=== PATIENT | female | born 1950 | race African-American/Black ===

== ENCOUNTER 2020-09-16 13:45 | Inpatient (IN) | payer MEDICARE ==
[~2020-09-16] VITALS: Ht 172.7 cm; Wt 49.9 kg
[2020-09-16] MEDS ORDERED: MORPHINE SULFATE 4 MG/ML CPJ (NOT FOR IM USE) IV STA (15:19)
[2020-09-16] MEDS ORDERED: ONDANSETRON HCL 4MG/2ML INJ IV STA (15:19)
[2020-09-16] MEDS ORDERED: SODIUM CHLORIDE 0.9% 1,000 ML IV ONE (15:30)
[2020-09-16 16:15] LABS: BASOPHILS % 0.2 % (0.0-2.0); EOSINOPHILS % 0.1 % (0.0-5.0); HEMATOCRIT. 31.8 % (36.0-48.0); HEMOGLOBIN. 10.6 g/dL (12.0-16.0); LYMPHOCYTES % 17.2 % (20.0-50.0); MEAN CORPUSCULAR HEMOGLOBIN 32.9 pg (28.0-32.0); MEAN CORPUSCULAR VOLUME 98.9 fL (81.0-99.0); MEAN PLATELET VOLUME 7.1 fl (7.4-10.4); MONOCYTES % 7.1 % (2.0-8.0); NEUTROPHILS % 75.4 % (40.0-76.0); PLATELET 651 x1000/uL (130-400); RED BLOOD CELL COUNT 3.22 mill/uL (4.2-5.4)
[2020-09-16 16:21] LABS: CHLORIDE 100 mEq/L (98-107)
[2020-09-16 16:23] LABS: INR 1.1; PROTHROMBIN TIME 11.5 sec (9.6-11.0)
[2020-09-16 16:26] LABS: ETHANOL BLOOD < 10 mg/dL
[2020-09-16] MEDS ORDERED: PIPERACILLIN/TAZ 3.375G PREMIX 50 ML IV ONE (16:45)
[2020-09-16 17:14] LABS: CLARITY URINE TURBID (CLEAR); COLOR URINE YELLOW (YELLOW); KETONES URINE NEGATIVE (NEGATIVE); LEUKOCYTE ESTERASE URINE 2+ (NEGATIVE); NITRITE URINE NEGATIVE (NEGATIVE); OCCULT BLOOD URINE NEGATIVE (NEGATIVE); PH URINE 7.5 (4.5-8.0); PROTEIN URINE 1+ (NEGATIVE)
[2020-09-16 17:31] LABS: *AMPHETAMINES SCREEN URINE NEGATIVE (NEGATIVE); *BARBITURATES SCREEN URINE NEGATIVE (NEGATIVE); *BENZODIAZEPINES SCREEN URINE NEGATIVE (NEGATIVE); *COCAINE SCREEN URINE NEGATIVE (NEGATIVE); METHADONE URINE SCREEN NEGATIVE (NEGATIVE); OPIATES URINE SCREEN PRESUMTIVE POSITIVE (NEGATIVE)
[2020-09-16 17:32] LABS: CANNABINOID URINE SCREEN PRESUMTIVE POSITIVE (NEGATIVE); PHENCYCLIDINE URINE SCREEN NEGATIVE (NEGATIVE)
[2020-09-16] MEDS ORDERED: MORPHINE SULFATE 10 MG/ML CPJ IV ONE (18:30)
[2020-09-16 22:45] VITALS: BP 129/69
[2020-09-16] MEDS ORDERED: TRAZODONE HCL 50MG TABLET PO PRN (23:00)
[2020-09-16] MEDS ORDERED: ONDANSETRON HCL 4MG/2ML INJ IV PRN (23:00)
[2020-09-16] MEDS ORDERED: HYDROCODONE/ACETAMINOPHEN 5/325MG TABLET PO PRN ×2 (23:00)
[2020-09-16] MEDS ORDERED: MORPHINE SULFATE 2 MG/ML CPJ (NOT FOR IM USE) IV PRN (23:00)
[2020-09-16] MEDS ORDERED: IOHEXOL-300 100 ML BOTTLE ONE (23:14)
[2020-09-17] MEDS: MORPHINE SULFATE 4 MG/ML CPJ (NOT FOR IM USE) IV PRN ×5 (00:29→23:43)
[2020-09-17] MEDS ORDERED: LISI40TA4 PO (03:28)
[2020-09-17] MEDS ORDERED: HYDR-3280 PO (03:39)
[2020-09-17] MEDS ORDERED: GABA300C PO (03:39)
[2020-09-17] MEDS ORDERED: METH-612 GT (03:41)
[2020-09-17 03:54] VITALS: BP 129/69
[2020-09-17 04:00] VITALS: BP 129/69
[2020-09-17] MEDS: ACETAMINOPHEN 325MG TABLET PO PRN ×2 (05:49→19:05)
[2020-09-17 08:00] VITALS: BP 148/65
[2020-09-17] MEDS: HEPARIN 5000 UNITS/ML VIAL SUBCUT SCH ×2 (09:00→21:00)
[2020-09-17 09:20] LABS: BASOPHILS % 0.4 % (0.0-2.0); HEMOGLOBIN. 9.9 g/dL (12.0-16.0); MEAN CORPUSCULAR HEMOGLOBIN 32.6 pg (28.0-32.0); MEAN CORPUSCULAR VOLUME 98.7 fL (81.0-99.0); MEAN PLATELET VOLUME 6.9 fl (7.4-10.4); MONOCYTES % 6.5 % (2.0-8.0); NEUTROPHILS % 75.1 % (40.0-76.0); PLATELET 618 x1000/uL (130-400); RED BLOOD CELL COUNT 3.04 mill/uL (4.2-5.4)
[2020-09-17 09:47] LABS: CHLORIDE 99 mEq/L (98-107)
[2020-09-17 12:00] VITALS: BP 129/64
[2020-09-17] MEDS: CEFTRIAXONE 1,000 MG in DEXTROSE 5% WATER 50 ML IV SCH (14:40)
[2020-09-17] MEDS: SODIUM CHLORIDE 0.9% 1,000 ML IV SCH (14:40)
[2020-09-17] MEDS: MORPHINE SULFATE 15MG TABLET SR PO SCH ×2 (15:30→21:11)
[2020-09-17] MEDS ORDERED: NALOXONE HCL 0.4 MG/ML 1ML VIAL IV PRN (15:30)
[2020-09-17 16:00] VITALS: BP 143/64
[2020-09-17 20:00] VITALS: BP 150/57
[2020-09-17] MEDS: GABAPENTIN 300MG CAPSULE PO SCH (21:10)
[2020-09-18] VITALS (7 sets, daily range): BP systolic 115–186; BP diastolic 64–93
[2020-09-18] MEDS: SODIUM CHLORIDE 0.9% 1,000 ML IV SCH ×2 (02:20→15:40)
[2020-09-18] MEDS: GABAPENTIN 300MG CAPSULE PO SCH ×3 (05:29→22:32)
[2020-09-18] MEDS: MORPHINE SULFATE 15MG TABLET SR PO SCH ×2 (05:32→12:42)
[2020-09-18 06:32] LABS: BASOPHILS % 0.3 % (0.0-2.0); EOSINOPHILS % 0.2 % (0.0-5.0); HEMATOCRIT. 31.8 % (36.0-48.0); HEMOGLOBIN. 10.7 g/dL (12.0-16.0); MEAN CORPUSCULAR HEMOGLOBIN 33.4 pg (28.0-32.0); MEAN CORPUSCULAR VOLUME 99.1 fL (81.0-99.0); MEAN PLATELET VOLUME 6.8 fl (7.4-10.4); MONOCYTES % 7.2 % (2.0-8.0); NEUTROPHILS % 72.3 % (40.0-76.0); PLATELET 616 x1000/uL (130-400); RED BLOOD CELL COUNT 3.22 mill/uL (4.2-5.4)
[2020-09-18] MEDS: MORPHINE SULFATE 4 MG/ML CPJ (NOT FOR IM USE) IV PRN ×4 (06:39→22:38)
[2020-09-18 06:44] LABS: CHLORIDE 101 mEq/L (98-107)
[2020-09-18] MEDS: HEPARIN 5000 UNITS/ML VIAL SUBCUT SCH ×2 (09:00→20:37)
[2020-09-18] MEDS: AMLODIPINE 2.5MG TABLET PO SCH ×2 (09:40→20:36)
[2020-09-18] MEDS: HYDROCODONE/ACETAMINOPHEN 10/325MG TABLET PO PRN ×3 (11:28→20:27)
[2020-09-18] MEDS ORDERED: CEPH-569 MT (12:23)
[2020-09-18] MEDS ORDERED: MSCON15 PO (12:23)
[2020-09-18] MEDS ORDERED: AMLO5TAB88 MT (12:38)
[2020-09-18] MEDS: ACETAMINOPHEN 325MG TABLET PO PRN (12:42)
[2020-09-18] MEDS: CEFTRIAXONE 1,000 MG in DEXTROSE 5% WATER 50 ML IV SCH (12:44)
[2020-09-18] MEDS ORDERED: MAGNESIUM HYDROXIDE 400MG/5ML 30ML UDC PO PRN (13:30)
[2020-09-18] MEDS: DOCUSATE SODIUM 100MG CAPSULE PO SCH (18:10)
[2020-09-18] MEDS: SENNOSIDES/DOCUSATE SOD 8.6/50MG TABLET PO SCH ×2 (20:37→22:41)
[2020-09-19] VITALS: BP 149/75
[2020-09-19] MEDS: MORPHINE SULFATE 15MG TABLET SR PO SCH ×4 (02:59→21:51)
[2020-09-19] MEDS: ACETAMINOPHEN 325MG TABLET PO PRN (03:06)
[2020-09-19 04:00] VITALS: BP 141/65
[2020-09-19] MEDS: SODIUM CHLORIDE 0.9% 1,000 ML IV SCH ×2 (05:00→18:20)
[2020-09-19 05:56] LABS: CHLORIDE 98 mEq/L (98-107)
[2020-09-19 06:03] LABS: BASOPHILS % 0.5 % (0.0-2.0); EOSINOPHILS % 0.5 % (0.0-5.0); HEMATOCRIT. 29.6 % (36.0-48.0); HEMOGLOBIN. 10.1 g/dL (12.0-16.0); LYMPHOCYTES % 17.7 % (20.0-50.0); MEAN CORPUSCULAR HEMOGLOBIN 33.7 pg (28.0-32.0); MEAN CORPUSCULAR VOLUME 98.3 fL (81.0-99.0); MONOCYTES % 7.2 % (2.0-8.0); NEUTROPHILS % 74.1 % (40.0-76.0); PLATELET 612 x1000/uL (130-400); RED BLOOD CELL COUNT 3.01 mill/uL (4.2-5.4); RED CELL DISTRIBUTION WIDTH 13.8 % (11.6-14.6)
[2020-09-19] MEDS: GABAPENTIN 300MG CAPSULE PO SCH ×3 (06:39→21:48)
[2020-09-19 08:00] VITALS: BP 144/68
[2020-09-19] MEDS: DOCUSATE SODIUM 100MG CAPSULE PO SCH ×2 (08:42→16:22)
[2020-09-19] MEDS: AMLODIPINE 2.5MG TABLET PO SCH ×2 (08:43→20:43)
[2020-09-19] MEDS: HEPARIN 5000 UNITS/ML VIAL SUBCUT SCH ×2 (08:43→20:45)
[2020-09-19] MEDS: MORPHINE SULFATE 4 MG/ML CPJ (NOT FOR IM USE) IV PRN (08:44)
[2020-09-19] MEDS ORDERED: ASPIRIN 81MG TABLET PO NR (09:15)
[2020-09-19 12:00] VITALS: BP 156/70
[2020-09-19] MEDS: HYDROCODONE/ACETAMINOPHEN 10/325MG TABLET PO PRN ×3 (12:06→20:29)
[2020-09-19] MEDS: CEFTRIAXONE 1,000 MG in DEXTROSE 5% WATER 50 ML IV SCH (14:12)
[2020-09-19] MEDS: CITALOPRAM HYDROBROMIDE 10MG TABLET PO SCH (14:12)
[2020-09-19 16:00] VITALS: BP 136/62
[2020-09-19 20:00] VITALS: BP 137/59
[2020-09-19] MEDS: SENNOSIDES/DOCUSATE SOD 8.6/50MG TABLET PO SCH (20:42)
[2020-09-20] VITALS: BP 138/67
[2020-09-20] MEDS: HYDROCODONE/ACETAMINOPHEN 10/325MG TABLET PO PRN ×5 (00:33→18:55)
[2020-09-20 04:00] VITALS: BP 143/75
[2020-09-20] MEDS: GABAPENTIN 300MG CAPSULE PO SCH ×3 (06:17→21:51)
[2020-09-20] MEDS: MORPHINE SULFATE 15MG TABLET SR PO SCH ×3 (06:17→21:53)
[2020-09-20 07:03] LABS: BASOPHILS % 0.5 % (0.0-2.0); EOSINOPHILS % 0.5 % (0.0-5.0); HEMATOCRIT. 27.6 % (36.0-48.0); HEMOGLOBIN. 9.4 g/dL (12.0-16.0); LYMPHOCYTES % 19.3 % (20.0-50.0); MEAN CORPUSCULAR HEMOGLOBIN 33.3 pg (28.0-32.0); MEAN CORPUSCULAR VOLUME 98.1 fL (81.0-99.0); MONOCYTES % 8.6 % (2.0-8.0); NEUTROPHILS % 71.1 % (40.0-76.0); PLATELET 586 x1000/uL (130-400); RED BLOOD CELL COUNT 2.81 mill/uL (4.2-5.4); RED CELL DISTRIBUTION WIDTH 13.6 % (11.6-14.6)
[2020-09-20 07:15] LABS: CHLORIDE 101 mEq/L (98-107)
[2020-09-20] MEDS: SODIUM CHLORIDE 0.9% 1,000 ML IV SCH ×2 (07:40→21:00)
[2020-09-20 08:00] VITALS: BP 148/82
[2020-09-20] MEDS: DOCUSATE SODIUM 100MG CAPSULE PO SCH ×2 (08:58→18:45)
[2020-09-20] MEDS: AMLODIPINE 2.5MG TABLET PO SCH ×2 (08:58→20:50)
[2020-09-20] MEDS: CITALOPRAM HYDROBROMIDE 10MG TABLET PO SCH (09:00)
[2020-09-20] MEDS: HEPARIN 5000 UNITS/ML VIAL SUBCUT SCH ×2 (09:00→20:50)
[2020-09-20 12:00] VITALS: BP 130/58
[2020-09-20 16:00] VITALS: BP 151/70
[2020-09-20 20:00] VITALS: BP 143/58
[2020-09-20] MEDS: SENNOSIDES/DOCUSATE SOD 8.6/50MG TABLET PO SCH (20:36)
[2020-09-20] MEDS: AMOXICILLIN/POTASSIUM CLAVULANATE 875/125MG TAB PO SCH (20:38)
[2020-09-21] VITALS (7 sets, daily range): BP systolic 127–159; BP diastolic 48–72
[2020-09-21] MEDS: HYDROCODONE/ACETAMINOPHEN 10/325MG TABLET PO PRN ×5 (00:45→18:54)
[2020-09-21] MEDS: BISACODYL 10MG SUPP PR PRN (01:02)
[2020-09-21] MEDS: GABAPENTIN 300MG CAPSULE PO SCH ×3 (05:59→21:37)
[2020-09-21] MEDS: MORPHINE SULFATE 15MG TABLET SR PO SCH ×2 (06:00→13:00)
[2020-09-21] MEDS: HEPARIN 5000 UNITS/ML VIAL SUBCUT SCH ×4 (09:00→21:38)
[2020-09-21] MEDS: DOCUSATE SODIUM 100MG CAPSULE PO SCH ×2 (09:05→16:13)
[2020-09-21] MEDS: CITALOPRAM HYDROBROMIDE 10MG TABLET PO SCH (09:05)
[2020-09-21] MEDS: AMOXICILLIN/POTASSIUM CLAVULANATE 875/125MG TAB PO SCH ×2 (09:05→21:38)
[2020-09-21] MEDS: AMLODIPINE 2.5MG TABLET PO SCH ×3 (09:14→21:37)
[2020-09-21 09:21] LABS: BASOPHILS % 0.4 % (0.0-2.0); CHLORIDE 99 mEq/L (98-107); EOSINOPHILS % 0.4 % (0.0-5.0); HEMATOCRIT. 34.5 % (36.0-48.0); HEMOGLOBIN. 11.4 g/dL (12.0-16.0); LYMPHOCYTES % 29.5 % (20.0-50.0); MEAN CORPUSCULAR HEMOGLOBIN 32.9 pg (28.0-32.0); MEAN CORPUSCULAR VOLUME 99.5 fL (81.0-99.0); MEAN PLATELET VOLUME 7.1 fl (7.4-10.4); MONOCYTES % 6.6 % (2.0-8.0); NEUTROPHILS % 63.1 % (40.0-76.0); PLATELET 666 x1000/uL (130-400); RED BLOOD CELL COUNT 3.47 mill/uL (4.2-5.4)
[2020-09-21] MEDS: SODIUM CHLORIDE 0.9% 1,000 ML IV SCH ×2 (09:21→20:01)
[2020-09-21] MEDS: ACETAMINOPHEN 325MG TABLET PO PRN (11:38)
[2020-09-21] MEDS ORDERED: MORPHINE SULFATE 15MG TABLET SR PO SCH (14:00)
[2020-09-21] MEDS: MORPHINE SULFATE 10MG/5ML ORAL SOLN UDC PO SCH (15:36)
[2020-09-21] MEDS: SENNOSIDES/DOCUSATE SOD 8.6/50MG TABLET PO SCH (21:37)
[2020-09-21] MEDS ORDERED: HYDROCODONE/ACETAMINOPHEN 10/325MG TABLET PO SCH (22:08)
[2020-09-22] VITALS: BP 160/73
[2020-09-22] MEDS: MORPHINE SULFATE 10MG/5ML ORAL SOLN UDC PO SCH ×3 (00:13→07:33)
[2020-09-22] MEDS: AMLODIPINE 2.5MG TABLET PO SCH ×2 (00:16→21:00)
[2020-09-22] MEDS: HYDROCODONE/ACETAMINOPHEN 10/325MG TABLET PO PRN ×5 (03:34→23:50)
[2020-09-22 04:00] VITALS: BP 141/71
[2020-09-22] MEDS: GABAPENTIN 300MG CAPSULE PO SCH ×3 (07:31→21:44)
[2020-09-22 08:00] VITALS: BP 146/59
[2020-09-22] MEDS: DOCUSATE SODIUM 100MG CAPSULE PO SCH ×2 (08:50→17:46)
[2020-09-22] MEDS: HEPARIN 5000 UNITS/ML VIAL SUBCUT SCH ×2 (08:50→21:00)
[2020-09-22] MEDS: AMOXICILLIN/POTASSIUM CLAVULANATE 875/125MG TAB PO SCH ×2 (08:50→21:38)
[2020-09-22 12:00] VITALS: BP 139/63
[2020-09-22] MEDS: SODIUM CHLORIDE 0.9% 1,000 ML IV SCH (13:00)
[2020-09-22] MEDS: MORPHINE SULFATE 15MG TABLET SR PO SCH ×2 (14:54→21:38)
[2020-09-22 16:00] VITALS: BP 147/66
[2020-09-22 20:00] VITALS: BP 128/54
[2020-09-22] MEDS: SENNOSIDES/DOCUSATE SOD 8.6/50MG TABLET PO SCH (21:38)
[2020-09-23] VITALS: BP 160/62
[2020-09-23] MEDS: SODIUM CHLORIDE 0.9% 1,000 ML IV SCH ×3 (02:20→20:00)
[2020-09-23] MEDS: AMLODIPINE 2.5MG TABLET PO SCH ×2 (02:39→21:18)
[2020-09-23] MEDS ORDERED: AMLODIPINE 2.5MG TABLET PO SCH (02:45)
[2020-09-23] MEDS: MORPHINE SULFATE 15MG TABLET SR PO SCH ×5 (03:38→21:18)
[2020-09-23] MEDS: HYDROCODONE/ACETAMINOPHEN 10/325MG TABLET PO PRN ×4 (03:49→17:20)
[2020-09-23 04:00] VITALS: BP 147/52
[2020-09-23] MEDS: GABAPENTIN 300MG CAPSULE PO SCH ×2 (06:46→13:15)
[2020-09-23 08:00] VITALS: BP 144/64
[2020-09-23] MEDS: HEPARIN 5000 UNITS/ML VIAL SUBCUT SCH ×2 (09:00→21:00)
[2020-09-23] MEDS: DOCUSATE SODIUM 100MG CAPSULE PO SCH ×2 (09:04→17:19)
[2020-09-23] MEDS: AMOXICILLIN/POTASSIUM CLAVULANATE 875/125MG TAB PO SCH ×2 (09:04→21:18)
[2020-09-23 12:00] VITALS: BP 146/54
[2020-09-23 16:00] VITALS: BP 130/62
[2020-09-23 20:00] VITALS: BP 136/77
[2020-09-23] MEDS: SENNOSIDES/DOCUSATE SOD 8.6/50MG TABLET PO SCH (21:18)
[2020-09-24] VITALS (7 sets, daily range): BP systolic 138–156; BP diastolic 69–82
[2020-09-24] MEDS: GABAPENTIN 300MG CAPSULE PO SCH ×3 (00:46→15:35)
[2020-09-24] MEDS: HYDROCODONE/ACETAMINOPHEN 10/325MG TABLET PO PRN ×4 (00:46→17:38)
[2020-09-24] MEDS: BISACODYL 10MG SUPP PR PRN (01:57)
[2020-09-24] MEDS: MAGNESIUM/ALUMINUM HYDROXIDE/SIMETHICONE 30ML UDC PO PRN ×3 (02:07→18:18)
[2020-09-24] MEDS: METHOCARBAMOL 500MG TABLET PO PRN ×2 (02:14→12:12)
[2020-09-24] MEDS ORDERED: MINERAL OIL ENEMA 133ML PR PRN (03:00)
[2020-09-24] MEDS: MORPHINE SULFATE 15MG TABLET SR PO SCH ×3 (04:17→15:36)
[2020-09-24] MEDS: DOCUSATE SODIUM 100MG CAPSULE PO SCH ×2 (08:58→17:39)
[2020-09-24] MEDS: AMLODIPINE 2.5MG TABLET PO SCH (08:59)
[2020-09-24] MEDS: HEPARIN 5000 UNITS/ML VIAL SUBCUT SCH (08:59)
[2020-09-24] MEDS ORDERED: SENNOSIDES/DOCUSATE SOD 8.6/50MG TABLET PO SCH ×2 (09:00→09:07)
[2020-09-24] MEDS ORDERED: POLYETHYLENE GLYCOL 3350 (17GM) 1 DOSE PACK PO PRN (14:00)
[2020-09-24] MEDS ORDERED: MAGNESIUM CITRATE 300ML SOLUTION PO NR (15:30)
[2020-09-24] MEDS ORDERED: MAGNESIUM HYDROXIDE 400MG/5ML 30ML UDC PO PRN (18:00)
== END 2020-09-24 18:23 | DRG 872 ==
LOC: ER 13:45 → 6EST 20:28 → EDBEDREQTM 20:31 → EDBEDREQ 20:31 → ENRESERV 21:38 → 6EST 09-17 00:37
PROVIDERS: ADMIT Internal Medicine; ATTEND Internal Medicine
DX: A40.1 Sepsis due to streptococcus, group B (principal); C34.90 Malignant neoplasm of unspecified part of unspecified bronchus or lung; N39.0 Urinary tract infection, site not specified; E44.0 Moderate protein-calorie malnutrition; E87.1 Hypo-osmolality and hyponatremia; Q60.3 Renal hypoplasia, unilateral; Z68.1 Body mass index [BMI] 19.9 or less, adult; G89.3 Neoplasm related pain (acute) (chronic); C50.919 Malignant neoplasm of unspecified site of unspecified female breast; D64.9 Anemia, unspecified; F12.90 Cannabis use, unspecified, uncomplicated; I10 Essential (primary) hypertension; R62.7 Adult failure to thrive; R63.0 Anorexia; F32.9 Major depressive disorder, single episode, unspecified; F41.9 Anxiety disorder, unspecified; J44.9 Chronic obstructive pulmonary disease, unspecified; I34.0 Nonrheumatic mitral (valve) insufficiency; K59.00 Constipation, unspecified; K76.89 Other specified diseases of liver; M19.90 Unspecified osteoarthritis, unspecified site; Z20.828 Contact with and (suspected) exposure to other viral communicable diseases; K83.8 Other specified diseases of biliary tract; Z79.899 Other long term (current) drug therapy; Z82.49 Family history of ischemic heart disease and other diseases of the circulatory system; Z87.891 Personal history of nicotine dependence; M89.8X9 Other specified disorders of bone, unspecified site
CPT/HCPCS: 36415; 71045; 74177; 80053; 80061; 80305; 80320; 81003; 83605; 83735; 83880; 84145; 84484; 85025; 87426; 93005; 93306; 96365; 97110; 97162; 99291; J0696; J1644; J2270; J2405; J2543; J7030; J7060; Q9967; G0480